=== PATIENT | male | born 1965 | race Caucasian/White ===

== ENCOUNTER → 2021-01-04 | Day surgery (SDC) | payer OTHER ==
[~2021-01-04] MED LIST: ASPIRIN EC81 MG PO; BENAZEPRIL HCL20 MG PO; FENOFIBRATE160 MG PO; HCTZ25 MG PO; NORVASC5 MG PO; PERCOCET 5-3251 EACH PO; PRAVACHOL20 MG PO; TRELEGY ELLIPT1 EACH INH
[2021-01-04 08:29] LABS: HCT 42.6 % (42.0-52.0); HGB 14.5 g/dl (13.2-18.0); MCH 31.7 pg (25.0-31.0); MCV 93.2 fL (78.0-100.0); MPV 12.2 fL (6.0-9.5); RBC 4.57 M/uL (4.70-6.00); RDW 12.3 % (11.5-14.0); WBC 5.8 K/uL (4.0-10.5)
[2021-01-04 08:54] LABS: ALBUMIN 3.6 g/dL (3.4-5.0); BILIRUBIN - TOTAL 0.3 mg/dL (0.2-1.0); CREATININE 0.75 mg/dL (0.67-1.17); POTASSIUM 3.8 mmol/L (3.5-5.1); TOTAL PROTEIN 6.6 g/dL (6.4-8.2)
== END | disposition home or self-care (01) ==
LOC: FAS 06:08
PROVIDERS: Orthopaedic Surgery
DX: G56.03 Carpal tunnel syndrome, bilateral upper limbs (principal); E78.00 Pure hypercholesterolemia, unspecified; J45.909 Unspecified asthma, uncomplicated; I10 Essential (primary) hypertension; Z98.52 Vasectomy status
CPT/HCPCS: 36415; 80053; 93005; J1100; J1885; J2250; J2405; J2704; J3010; J7120

== ENCOUNTER → 2021-06-06 | Day surgery (SDC) | payer OTHER ==
[~2021-06-06] VITALS: Ht 177.8 cm; Wt 94.3 kg
[2021-06-06 07:12] LABS: CREATININE 0.74 mg/dL (0.67-1.17); POTASSIUM 4.2 mmol/L (3.5-5.1)
== END | disposition home or self-care (01) ==
LOC: FAS 05:47
PROVIDERS: Anesthesiology
DX: G56.02 Carpal tunnel syndrome, left upper limb (principal); Z88.8 Allergy status to other drugs, medicaments and biological substances; G43.909 Migraine, unspecified, not intractable, without status migrainosus; Z79.82 Long term (current) use of aspirin; I10 Essential (primary) hypertension; E78.5 Hyperlipidemia, unspecified; J45.909 Unspecified asthma, uncomplicated
CPT/HCPCS: 36415; 80048; J1100; J2250; J2405; J2704; J3010; J7120